=== PATIENT | male | born 2000 | race Caucasian/White ===

== ENCOUNTER 2024-06-02 07:09 | Emergency (ER) | payer OTHER ==
[~2024-06-02] VITALS: Ht 165.1 cm; Wt 108.4 kg
[2024-06-02 07:22] VITALS: O2SAT 100
[2024-06-02] MEDS: ONDANSETRON 4MG ODT PO STA (07:53)
[2024-06-02] MEDS: FAMOTIDINE 20MG TABLET PO ONE (07:53)
[2024-06-02] MEDS: MAGNESIUM/ALUMINUM HYDROXIDE/SIMETHICONE 30ML UDC PO STA (07:53)
[2024-06-02] MEDS: DICYCLOMINE 10 MG/5 ML ORAL SYR PO STA (08:16)
[2024-06-02] MEDS ORDERED: OMEP20CA14 PO (08:35)
[2024-06-02 09:07] VITALS: BP 126/74; PULSE 66; RESP 18; TEMP 97.1
== END 2024-06-02 09:10 | disposition home or self-care (01) ==
LOC: ER 07:09
DX: K21.9 Gastro-esophageal reflux disease without esophagitis (principal)
CPT/HCPCS: 99284; 71045; 93005; Q0162